=== PATIENT | female | born 1955 | race Caucasian/White ===

== ENCOUNTER 2024-12-10 01:48 | Outpatient (CLI) | payer MEDICARE, SELFPAY ==
--- NOTE | 2024-12-10 12:17 | DI.RAD_ITS ---
Exam(s) XR FOOT LT COMPLETE EXAM: XR FOOT LT COMPLETE CLINICAL HISTORY: Left foot pain,m79.672. TECHNIQUE: 2D digital imaging was performed of the left foot. Three images were obtained. AP, oblique and lateral views were obtained. COMPARISON: No exams were available for comparison FINDINGS: BONES: No acute fracture is present. No bony destructive lesion is seen. There is a small plantar calcaneal spur. JOINTS: No dislocation present. The joint spaces are well maintained. SOFT TISSUE: Normal. No radiopaque foreign bodies are identified. IMPRESSION: No acute abnormalities identified. DATA REPOSITORY: RADIATION DOSE DELIVERED:
== END 2024-12-10 02:08 ==
LOC: DI 01:48
PROVIDERS: PCP Family Medicine Adult Medicine; Visit Provider Podiatrist
DX: M79.672 Pain in left foot (principal); M72.2 Plantar fascial fibromatosis; M84.375A Stress fracture, left foot, initial encounter for fracture; W20.8XXA Other cause of strike by thrown, projected or falling object, initial encounter
CPT/HCPCS: 29580; 99203; 29850; 73630

== ENCOUNTER → 2024-12-31 13:08 | Outpatient (BNVA) | payer MEDICARE, SELFPAY | PROVIDERS: PCP Nurse Practitioner Family; Referring Provider Nurse Practitioner Family; Visit Provider Podiatrist | DX: M79.672 Pain in left foot (principal); M72.2 Plantar fascial fibromatosis; M66.872 Spontaneous rupture of other tendons, left ankle and foot; M84.375D Stress fracture, left foot, subsequent encounter for fracture with routine healing; X58.XXXD Exposure to other specified factors, subsequent encounter | CPT/HCPCS: 99214 ==

== ENCOUNTER 2025-01-22 03:00 | Outpatient (CLI) | payer MEDICARE, SELFPAY ==
--- NOTE | 2025-01-22 07:00 | DI.MRI_ITS ---
Exam(s) MR LOWER JOINT LT WO EXAM: MR LOWER JOINT LT WO CLINICAL HISTORY: Pain/tear/stress fracture M84.375A STRESS FX M62.9 DISORDER MUSCLE M72.2 TECHNIQUE: Multiplanar multisequence MRI was performed without intravenous contrast. COMPARISON: No exams were available for comparison FINDINGS: SKIN: No evidence of ulcer nor subcutaneous tract. There is mild subcutaneous edema around the ankle but no prominent soft tissue swelling. BONES/JOINTS: There is some intraosseous edema in the posterior inferior calcaneus extending into inferior calcaneal spur and there is thickening and signal abnormality within the medial band of the plantar fascia consistent with medial plantar fasciitis and partial tearing of the plantar fascia at this level. There is no abnormal signal in the calcaneus at the insertion site of the Achilles tendon and there is no abnormal intrasubstance signal abnormality within the Achilles tendon itself. There is no ankle joint effusion but there is some degenerative change in the ankle joint, more so medially where there are also degenerative subarticular cysts in the medial aspect of the talar dome. There is only minimal bone edema at this level. The mid and lateral aspects of the talar dome appear unremarkable as does the remainder of the talus. There is some degenerative change evident in the sub sense 2nd tarsometatarsal joint. Main Lisfranc joint ligament appears intact. LIGAMENTS: The anterior and posterior tibiofibular and calcaneofibular ligaments are intact. The anterior and posterior talofibular ligaments are intact. The deltoid ligament is intact. SINUS TARSI: There is no loss of the normal fat signal in this space. Interosseous ligament is intact. There is no evidence of sinus tarsi ganglion cyst. ANTEROLATERAL GUTTER:There is no abnormal signal/abnormal tissue in this space. MUSCULOTENDINOUS STRUCTURES: Achilles tendon: Unremarkable. No evidence of tear nor tendinitis/tendinosis. Plantar fascia: As described above, there is significant thickening and signal abnormality in the medial band of the plantar fascia.. There is a moderate size inferior calcaneal spur at this level which exhibits edema as well as some bone edema in the inferior calcaneus at this level consistent with probable bone contusion. Anterior Extensor tendons: Tibialis anterior and other extensor tendons appear unremarkable. No tears nor tenosynovitis. Medial Tendons: Posterior Tibialis: No tear. Minimal fluid in the tendon sheath. Flexor Digitorum longus: Unremarkable. No tear or tenosynovitis evident. Flexor Hallicus longus: Unremarkable. No tear or tenosynovitis evident. Lateral Tendons: Peroneus longus: Unremarkable. No tear nor tenosynovitis evident. Peroneus brevis:Unremarkable. No tear nor tenosynovitis evident. SOFT TISSUES: Unremarkable. OTHER FINDINGS: None. IMPRESSION: 1. The main findings here are at the inferior aspect of the calcaneus. There is abnormal thickening and signal abnormality within the medial band of the plantar fascia consistent with plantar fasciitis and partial tearing of the plantar fascia at this level. There is also some bone contusion signal in the inferior calcaneus and inferior calcaneal spur/enthesophyte at this level. 2. The Achilles tendon appears unremarkable and the intraosseous marrow edema in the inferior calcaneus does not appear to extend to the insertional aspect of the Achilles tendon on the posterior aspect of the calcaneus. 3. There are some degenerative changes in the tibiotalar joint, more so medially where there are degenerative subarticular cysts in the most medial aspect of the talar dome. There is no significant tibiotalar joint effusion. DATA REPOSITORY:
== END 2025-01-22 03:20 ==
LOC: DI 03:00
PROVIDERS: PCP Nurse Practitioner Family; Visit Provider Podiatrist
DX: M84.375A Stress fracture, left foot, initial encounter for fracture (principal); S86.892A Other injury of other muscle(s) and tendon(s) at lower leg level, left leg, initial encounter; M72.2 Plantar fascial fibromatosis; X58.XXXA Exposure to other specified factors, initial encounter
CPT/HCPCS: 73721

== ENCOUNTER → 2025-02-04 12:55 | Outpatient (BNVA) | payer MEDICARE, SELFPAY | PROVIDERS: PCP Nurse Practitioner Family; Referring Provider Nurse Practitioner Family; Visit Provider Podiatrist | DX: M79.672 Pain in left foot (principal); M72.2 Plantar fascial fibromatosis; M84.375A Stress fracture, left foot, initial encounter for fracture; M62.89 Other specified disorders of muscle | CPT/HCPCS: 99213 ==